=== PATIENT | female | born 1935 | race Caucasian/White ===

== ENCOUNTER → 2016-09-27 | Outpatient (CLI) | payer MEDICARE | END | disposition home or self-care (01) | LOC: CFH 09:51 | PROVIDERS: ATTEND Internal Medicine Cardiovascular Disease | DX: I35.0 Nonrheumatic aortic (valve) stenosis (principal) | CPT/HCPCS: 93306 ==

== ENCOUNTER → 2016-10-25 | Outpatient (CLI) | payer MEDICARE | END | disposition home or self-care (01) | LOC: CFH 10:06 | PROVIDERS: ATTEND Internal Medicine Cardiovascular Disease | DX: I70.0 Atherosclerosis of aorta (principal); M47.894 Other spondylosis, thoracic region; E78.2 Mixed hyperlipidemia; I10 Essential (primary) hypertension | CPT/HCPCS: 71020 ==

== ENCOUNTER 2017-06-05 10:00 | Day surgery (SDC) | payer BC, MEDICARE ==
[2017-06-03 12:48] LABS: BASOPHILS # (AUTO) 0.05 x10^3/uL (0-0.1); BASOPHILS % (AUTO) 1 % (0-1); EOSINOPHILS % (AUTO) 3 % (1-7); LYMPHOCYTES # (AUTO) 1.55 x10^3/uL (1-3.4); LYMPHOCYTES % (AUTO) 22 % (22-44); MD NO; MEAN CORPUSCULAR HGB CONC 33.9 g/dL (32.4-35.8); MEAN CORPUSCULAR VOLUME 88.6 fL (80-100); MEAN PLATELET VOLUME 8.5 fL (7.4-10.4); MONOCYTES # (AUTO) 0.68 x10^3/uL (0.2-0.8); MONOCYTES % (AUTO) 10 % (2-9); NEUTROPHILS # (AUTO) 4.63 x10^3/uL (1.8-6.8); NEUTROPHILS % (AUTO) 65 % (42-75); PLATELET COUNT 203 x10^3/uL (130-400); RED BLOOD COUNT 5.42 x10^6/uL (3.82-5.3); RED CELL DISTRIBUTION WIDTH 13.5 % (9.6-15.2)
[2017-06-03 12:55] LABS: INTERNATIONAL NORMALIZED RATIO 0.99 (0.93-1.1); PROTHROMBIN TIME 10.2 Seconds (9.6-11.5)
[2017-06-03 12:58] LABS: ANION GAP 9 mmol/L (5-15); CALCIUM 9.3 mg/dL (8.5-10.1); CHLORIDE 109 mmol/L (98-107); CREATININE 1.03 mg/dL (0.55-1.02)
[~2017-06-05] VITALS: Ht 158.8 cm; Wt 85.9 kg
[~2017-06-05 10:00] MED LIST: AMLO10TA2 PO; METO-95 PO; PRAV20TA2 PO; VALS320T2 PO
[2017-06-05] MEDS ORDERED: SODIUM CHLORIDE 0.9% 1,000 ML IV ONE (10:28)
[2017-06-05] MEDS ORDERED: FENTANYL PF 100 MCG/2ML ONE (12:43)
[2017-06-05] MEDS ORDERED: MIDAZOLAM 1 MG/ML, 5ML ONE (12:43)
[2017-06-05] MEDS ORDERED: TICAGRELOR 90 MG TABLET ONE (12:43)
[2017-06-05] MEDS ORDERED: VERAPAMIL 2.5 MG/ML, 2ML ONE (12:44)
[2017-06-05] MEDS ORDERED: LIDOCAINE 2%, 20ML ONE (12:45)
[2017-06-05] MEDS ORDERED: BIVALIRUDIN 250 MG ONE (12:45)
[2017-06-05] MEDS ORDERED: HEPARIN 1,000 UNITS/ML, 10ML ONE (12:45)
[2017-06-05] MEDS ORDERED: NITROGLYCERIN 5 MG/ML, 10ML ONE (12:45)
[2017-06-05] MEDS ORDERED: SODIUM CHLORIDE 0.9% 1,000 ML IV SCH (15:08)
== END 2017-06-05 17:20 | disposition home or self-care (01) ==
LOC: CACL 10:00
PROVIDERS: ATTEND Internal Medicine Cardiovascular Disease
DX: I25.10 Atherosclerotic heart disease of native coronary artery without angina pectoris (principal); I10 Essential (primary) hypertension; E78.4 Other hyperlipidemia
CPT/HCPCS: 36415; 71046; 80048; 85025; 85610; 85730; 93308; 93321; 93454; 93571; 99156; 99157; C1769; C1887; C1894; J1644; J2250; J3010; J3490; Q9967; J0583

== ENCOUNTER 2017-07-19 10:19 | Observation (INO) | payer MEDICARE ==
[~2017-07-19] VITALS: Ht 157.5 cm; Wt 82.0 kg
[2017-07-19 10:54] VITALS: BP 130/79
[2017-07-19] MEDS ORDERED: CLOPIDOGREL 75 MG TABLET PO ONE (11:00)
[2017-07-19] MEDS ORDERED: ASPIRIN 325 MG TABLET EC PO ONE (11:00)
[2017-07-19] MEDS ORDERED: CLOPIDOGREL 75 MG TABLET ONE (11:04)
[2017-07-19] MEDS ORDERED: ASPIRIN 325 MG TABLET EC ONE ×2 (11:04→11:11)
[2017-07-19 11:10] LABS: BASOPHILS # (AUTO) 0.03 x10^3/uL (0-0.1); BASOPHILS % (AUTO) 0 % (0-1); EOSINOPHILS # (AUTO) 0.17 x10^3/uL (0-0.4); EOSINOPHILS % (AUTO) 2 % (1-7); LYMPHOCYTES # (AUTO) 1.81 x10^3/uL (1-3.4); LYMPHOCYTES % (AUTO) 24 % (22-44); MD NO; MEAN CORPUSCULAR HEMOGLOBIN 30.2 pg (27.0-34.8); MEAN PLATELET VOLUME 8.9 fL (7.4-10.4); MONOCYTES # (AUTO) 0.63 x10^3/uL (0.2-0.8); MONOCYTES % (AUTO) 8 % (2-9); NEUTROPHILS # (AUTO) 5.01 x10^3/uL (1.8-6.8); NEUTROPHILS % (AUTO) 66 % (42-75); PLATELET COUNT 218 x10^3/uL (130-400); RED BLOOD COUNT 5.34 x10^6/uL (3.82-5.3); RED CELL DISTRIBUTION WIDTH 13.3 % (9.6-15.2)
[2017-07-19 11:16] LABS: ANION GAP 7 mmol/L (5-15); CALCIUM 9.1 mg/dL (8.5-10.1); CHLORIDE 109 mmol/L (98-107); CREATININE 1.24 mg/dL (0.55-1.02)
[2017-07-19] MEDS ORDERED: FENTANYL PF 100 MCG/2ML ONE (14:35)
[2017-07-19] MEDS ORDERED: MIDAZOLAM 1 MG/ML, 5ML ONE (14:35)
[2017-07-19] MEDS ORDERED: TICAGRELOR 90 MG TABLET ONE (14:35)
[2017-07-19] MEDS ORDERED: VERAPAMIL 2.5 MG/ML, 2ML ONE (14:35)
[2017-07-19] MEDS ORDERED: BIVALIRUDIN 250 MG ONE (14:36)
[2017-07-19] MEDS ORDERED: HEPARIN 1,000 UNITS/ML, 10ML ONE (14:36)
[2017-07-19] MEDS ORDERED: LIDOCAINE 2%, 2ML ONE ×2 (14:36→15:17)
[2017-07-19] MEDS: SODIUM CHLORIDE 0.9% 1,000 ML IV SCH ×2 (15:56→22:56)
[2017-07-19 16:10] VITALS: BP 137/72
[2017-07-19 19:01] VITALS: BP 140/68
[2017-07-19] MEDS: TICAGRELOR 90 MG TABLET PO SCH (20:12)
[2017-07-20 01:39] VITALS: BP 123/74
[2017-07-20 05:37] LABS: ALBUMIN 3.2 g/dL (3.4-5.0); ANION GAP 6 mmol/L (5-15); CALCIUM 8.8 mg/dL (8.5-10.1); CHLORIDE 111 mmol/L (98-107); CREATININE 0.95 mg/dL (0.55-1.02)
[2017-07-20] MEDS: SODIUM CHLORIDE 0.9% 1,000 ML IV SCH (07:22)
[2017-07-20 07:28] VITALS: BP 115/73
[2017-07-20] MEDS ORDERED: ASPI-621 PO (08:28)
[2017-07-20] MEDS ORDERED: TICA90TA PO (08:28)
[2017-07-20] MEDS: TICAGRELOR 90 MG TABLET PO SCH (08:41)
[2017-07-20] MEDS ORDERED: ASPIRIN 81 MG TABLET EC PO SCH (09:00)
== END 2017-07-20 11:38 | disposition home or self-care (01) ==
LOC: CACL 10:19 → ORIP 15:56 → 5SO 16:20
PROVIDERS: ADMIT Internal Medicine Cardiovascular Disease; ATTEND Internal Medicine Cardiovascular Disease
DX: I25.10 Atherosclerotic heart disease of native coronary artery without angina pectoris (principal); I10 Essential (primary) hypertension; E78.2 Mixed hyperlipidemia; I35.0 Nonrheumatic aortic (valve) stenosis
CPT/HCPCS: 36415; 80048; 82040; 85014; 85018; 85025; 99156; 99157; C1725; C1769; C1874; C1887; C1894; C9600; C9601; G0378; J0583; J2250; J3010; J3490; Q9967; J1644

== ENCOUNTER 2017-07-30 06:12 | Inpatient (IN) | payer MEDICARE ==
[~2017-07-30] VITALS: Ht 157.5 cm; Wt 81.4 kg
[~2017-07-30 06:12] MED LIST changes: +ASPI-621 PO; +TICA90TA PO
[2017-07-30] MEDS ORDERED: SODIUM CHLORIDE 0.9% 1,000 ML IV ONE (06:20)
[2017-07-30 06:24] VITALS: BP 141/75
[2017-07-30] MEDS ORDERED: CHLORHEXIDINE 15 ML BOTTLE MM PRN (06:30)
[2017-07-30] MEDS ORDERED: ONDANSETRON 2MG/ML, 2ML IVPush PRN ×2 (06:30→10:00)
[2017-07-30] MEDS ORDERED: FENTANYL PF 250 MCG/5ML ONE (06:55)
[2017-07-30 07:12] LABS: BASOPHILS # (AUTO) 0.04 x10^3/uL (0-0.1); BASOPHILS % (AUTO) 1 % (0-1); EOSINOPHILS # (AUTO) 0.26 x10^3/uL (0-0.4); EOSINOPHILS % (AUTO) 4 % (1-7); LYMPHOCYTES # (AUTO) 1.28 x10^3/uL (1-3.4); LYMPHOCYTES % (AUTO) 18 % (22-44); MD NO; MEAN CORPUSCULAR HEMOGLOBIN 30.4 pg (27.0-34.8); MEAN CORPUSCULAR VOLUME 89.3 fL (80-100); MEAN PLATELET VOLUME 8.8 fL (7.4-10.4); MONOCYTES % (AUTO) 10 % (2-9); NEUTROPHILS # (AUTO) 4.81 x10^3/uL (1.8-6.8); NEUTROPHILS % (AUTO) 68 % (42-75); PLATELET COUNT 223 x10^3/uL (130-400); RED CELL DISTRIBUTION WIDTH 13.3 % (9.6-15.2)
[2017-07-30] MEDS ORDERED: CEFAZOLIN 1,000 MG ONE (07:14)
[2017-07-30] MEDS ORDERED: LIDOCAINE 2%, 10ML ONE (07:14)
[2017-07-30] MEDS ORDERED: HEPARIN 1,000 UNITS/ML, 10ML ONE ×2 (07:14→08:27)
[2017-07-30 07:20] LABS: ALANINE AMINOTRANSFERASE 32 U/L (12-78); ALBUMIN 3.6 g/dL (3.4-5.0); ANION GAP 8 mmol/L (5-15); CALCIUM 8.9 mg/dL (8.5-10.1); CHLORIDE 111 mmol/L (98-107); CREATININE 1.16 mg/dL (0.55-1.02)
[2017-07-30 07:25] LABS: ALKALINE PHOSPHATASE 105 U/L (45-117); BILIRUBIN,TOTAL 1.1 mg/dL (0.2-1.0); TOTAL PROTEIN 7.2 g/dL (6.4-8.2)
[2017-07-30 07:49] LABS: INTERNATIONAL NORMALIZED RATIO 0.99 (0.93-1.1); PROTHROMBIN TIME 10.3 Seconds (9.6-11.5)
[2017-07-30] MEDS ORDERED: DEXAMETHASONE 4 MG/ML, 1ML ONE ×2 (07:50)
[2017-07-30] MEDS ORDERED: ROCURONIUM 10 MG/ML,10ML ONE (07:50)
[2017-07-30] MEDS ORDERED: PROPOFOL 10 MG/ML, 20ML ONE (07:50)
[2017-07-30] MEDS ORDERED: PHENYLEPHRINE 10 MG/ML ONE (07:50)
[2017-07-30] MEDS ORDERED: VERAPAMIL 2.5 MG/ML, 2ML ONE (08:27)
[2017-07-30] MEDS ORDERED: NITROGLYCERIN 5 MG/ML, 10ML ONE (08:27)
[2017-07-30] MEDS ORDERED: PROTAMINE SULFATE 10 MG/ML, 5ML ONE (09:29)
[2017-07-30] MEDS: SODIUM CHLORIDE 0.9% 1,000 ML IV SCH ×3 (09:40→23:09)
[2017-07-30] MEDS ORDERED: DEXTROSE 4 GM TAB.CHEW PO PRN (10:00)
[2017-07-30] MEDS ORDERED: HYDROcodone/APAP 5/325 TABLET PO PRN (10:00)
[2017-07-30] MEDS ORDERED: hydrALAzine 20 MG/ML, 1ML IVPush PRN (10:00)
[2017-07-30] MEDS ORDERED: LABETALOL 20 MG/4 ML IVPush PRN (10:00)
[2017-07-30] MEDS ORDERED: ACETAMINOPHEN 325 MG TABLET PO PRN (10:00)
[2017-07-30] MEDS ORDERED: DEXTROSE 50%, 50ML SYRINGE IVPush PRN (10:00)
[2017-07-30] MEDS ORDERED: GLUCAGON 1 MG IM PRN (10:00)
[2017-07-30] MEDS: SODIUM CHLORIDE FLUSH 10ML SYR IVF SCH ×2 (10:56→20:24)
[2017-07-30] MEDS: METOPROLOL SUCCINATE 100 MG TAB.ER.24H PO SCH (12:30)
[2017-07-30] MEDS ORDERED: SUCCINYLCHOLINE 20 MG/ML, 10ML ONE (15:14)
[2017-07-30] MEDS ORDERED: EPHEDRINE 50 MG/ML, 1ML ONE (15:14)
[2017-07-30 18:40] VITALS: BP 120/72
[2017-07-30] MEDS: TICAGRELOR 90 MG TABLET PO SCH (20:24)
[2017-07-30] MEDS ORDERED: PRAVASTATIN 20 MG TABLET PO SCH (21:00)
[2017-07-31 02:01] VITALS: BP 149/67
[2017-07-31 05:21] LABS: BASOPHILS # (AUTO) 0.01 x10^3/uL (0-0.1); BASOPHILS % (AUTO) 0 % (0-1); EOSINOPHILS % (AUTO) 0 % (1-7); LYMPHOCYTES # (AUTO) 1.08 x10^3/uL (1-3.4); LYMPHOCYTES % (AUTO) 9 % (22-44); MD NO; MEAN CORPUSCULAR HEMOGLOBIN 29.7 pg (27.0-34.8); MEAN CORPUSCULAR HGB CONC 33.4 g/dL (32.4-35.8); MEAN CORPUSCULAR VOLUME 88.7 fL (80-100); MEAN PLATELET VOLUME 8.9 fL (7.4-10.4); MONOCYTES # (AUTO) 0.83 x10^3/uL (0.2-0.8); MONOCYTES % (AUTO) 7 % (2-9); NEUTROPHILS % (AUTO) 85 % (42-75); PLATELET COUNT 163 x10^3/uL (130-400); RED BLOOD COUNT 4.38 x10^6/uL (3.82-5.3); RED CELL DISTRIBUTION WIDTH 13.3 % (9.6-15.2)
[2017-07-31 05:29] LABS: CHLORIDE 113 mmol/L (98-107)
[2017-07-31 05:37] LABS: ALBUMIN 3.1 g/dL (3.4-5.0); ANION GAP 9 mmol/L (5-15); CALCIUM 8.9 mg/dL (8.5-10.1); CREATININE 1.02 mg/dL (0.55-1.02)
[2017-07-31] MEDS: SODIUM CHLORIDE 0.9% 1,000 ML IV SCH (05:40)
[2017-07-31 06:59] VITALS: BP 130/62
[2017-07-31] MEDS ORDERED: ASPIRIN 81 MG TABLET EC PO SCH (09:00)
[2017-07-31] MEDS ORDERED: ACET325T14 PO (09:12)
[2017-07-31] MEDS: METOPROLOL SUCCINATE 100 MG TAB.ER.24H PO SCH (09:39)
[2017-07-31] MEDS: TICAGRELOR 90 MG TABLET PO SCH (09:39)
[2017-07-31] MEDS: SODIUM CHLORIDE FLUSH 10ML SYR IVF SCH (09:40)
[2017-07-31 12:35] VITALS: BP 128/68
== END 2017-07-31 14:01 | disposition home or self-care (01) | DRG 266 ==
LOC: ORIP 06:12 → CCU 09:56 → 5SO 16:41
PROVIDERS: ADMIT Internal Medicine Cardiovascular Disease; ATTEND Internal Medicine Cardiovascular Disease
PROC: 02RF38Z Replacement of Aortic Valve with Zooplastic Tissue, Percutaneous Approach (ICD-10-PCS; 2017-07-30)
PROC: 027F3ZZ Dilation of Aortic Valve, Percutaneous Approach (ICD-10-PCS; 2017-07-30)
PROC: B3101ZZ Fluoroscopy of Thoracic Aorta using Low Osmolar Contrast (ICD-10-PCS; 2017-07-30)
PROC: B246ZZ4 Ultrasonography of Right and Left Heart, Transesophageal (ICD-10-PCS; principal; 2017-07-30 08:00)
DX: I35.0 Nonrheumatic aortic (valve) stenosis (principal); Z00.6 Encounter for examination for normal comparison and control in clinical research program; I50.33 Acute on chronic diastolic (congestive) heart failure; I11.0 Hypertensive heart disease with heart failure; E78.5 Hyperlipidemia, unspecified; I25.10 Atherosclerotic heart disease of native coronary artery without angina pectoris; E78.2 Mixed hyperlipidemia; Z95.5 Presence of coronary angioplasty implant and graft; Z72.89 Other problems related to lifestyle; Z82.49 Family history of ischemic heart disease and other diseases of the circulatory system
CPT/HCPCS: 33361; 36415; 80048; 80053; 82040; 83880; 85025; 85347; 85610; 85730; 86850; 86900; 86923; 87081; 92986; 93005; 93306; 93312; 93321; 93325; 93355; C1760; C1769; C1894; J0690; J1100; J1644; J2704; J2720; J3010; J3490; J0330; J2370; J7030; Q9967

== ENCOUNTER → 2017-09-26 | Outpatient (CLI) | payer MEDICARE ==
[~2017-09-26] MED LIST changes: +ACET325T14 PO
== END | disposition home or self-care (01) ==
LOC: CVU 12:20
PROVIDERS: ATTEND Internal Medicine Cardiovascular Disease
DX: I35.0 Nonrheumatic aortic (valve) stenosis (principal)
CPT/HCPCS: 93308; 93321; 93325

== ENCOUNTER → 2018-07-24 | Outpatient (CLI) | payer MEDICARE ==
[~2018-07-24] MED LIST changes: -AMLO10TA2 PO; +AMLO10TA8 PO; -ASPI-621 PO; +ASPI81TA45 PO
== END | disposition home or self-care (01) ==
LOC: CFH 09:56
PROVIDERS: ATTEND Nurse Practitioner Family
DX: I08.3 Combined rheumatic disorders of mitral, aortic and tricuspid valves (principal); I11.9 Hypertensive heart disease without heart failure; E11.9 Type 2 diabetes mellitus without complications; E78.5 Hyperlipidemia, unspecified
CPT/HCPCS: 93306

== ENCOUNTER → 2019-09-18 | Outpatient (CLI) | payer MEDICARE | END | disposition home or self-care (01) | LOC: CFH 08:49 | PROVIDERS: ATTEND Internal Medicine Cardiovascular Disease | DX: I05.1 Rheumatic mitral insufficiency (principal); I11.9 Hypertensive heart disease without heart failure | CPT/HCPCS: 93306 ==